=== PATIENT | male | born 1965 | race Caucasian/White ===

== ENCOUNTER 2018-08-19 13:02 | Emergency (ER) | payer MEDICAID ==
[~2018-08-19] VITALS: Ht 170.2 cm; Wt 67.8 kg
[~2018-08-19 13:02] MED LIST: FAMO40TA59 PO
[2018-08-19 13:23] VITALS: BP 141/83
[2018-08-19] MEDS ORDERED: ibuprofen tablet 400 MG TABLET PO ONE (14:10)
[2018-08-19] MEDS ORDERED: acetaminophen 325mg tablet PO ONE (15:15)
[2018-08-19] MEDS ORDERED: HYDR-4353 PO (15:26)
== END 2018-08-19 15:34 | disposition home or self-care (01) ==
LOC: ER 13:03
DX: R07.81 Pleurodynia (principal)
CPT/HCPCS: 99283

== ENCOUNTER 2019-10-08 15:06 | Emergency (ER) | payer MEDICAID ==
[~2019-10-08] VITALS: Ht 170.2 cm; Wt 75.0 kg
[2019-10-08 15:19] VITALS: BP 131/83
--- NOTE | 2019-10-08 15:39 | NUR ---
Patient seen and assessed by provider.
== END 2019-10-08 15:38 | disposition home or self-care (01) ==
LOC: ER 15:06
DX: J02.9 Acute pharyngitis, unspecified (principal); Z60.2 Problems related to living alone; Z79.899 Other long term (current) drug therapy
CPT/HCPCS: 99281